=== PATIENT | male | born 1950 | race Caucasian/White ===

== ENCOUNTER 2018-04-15 08:12 | Outpatient (CLI) | payer BC | END 2018-04-15 08:13 | disposition home or self-care (01) | LOC: BICRAD 08:12 | PROVIDERS: ATTEND Urology | DX: N20.2 Calculus of kidney with calculus of ureter (principal) | CPT/HCPCS: 74018 ==

== ENCOUNTER 2018-05-15 08:16 | Outpatient (CLI) | payer BC | END 2018-05-15 08:17 | disposition home or self-care (01) | LOC: BICRAD 08:16 | PROVIDERS: ATTEND Urology | DX: N20.0 Calculus of kidney (principal) | CPT/HCPCS: 74018 ==

== ENCOUNTER 2018-06-04 08:14 | Outpatient (CLI) | payer BC ==
[2018-06-04 10:35] LABS: Bilirubin Negative (Negative); Blood, Urine Small (Negative); Clarity CLEAR (Clear); Glucose, Urine (Dipstick) Negative (Negative); Leukocyte Negative (Negative); Nitrite Negative (Negative); Protein, Urine (Dipstick) Negative (Neg-Trace); Specific Gravity, Urine 1.017 (1.002-1.036); Urobilinogen 0.2 mg/dL (0.2-1.0)
[2018-06-04 10:36] LABS: Hemoglobin 14.5 g/dL (14.0-18.0); Mean Corpuscular HGB CONC 34.8 g/dL (32.0-36.0); Mean Corpuscular Hemoglobin 33.8 pg (27.0-31.0); Mean Corpuscular Volume 97.1 fL (78.0-98.0); Mean Platelet Volume 8.1 fL (7.4-10.4); Platelet Count 262 thou/uL (130-400); RBC Distribution Width 11.7 % (11.5-14.5); Red Blood Cell (RBC) Count 4.29 mill/uL (4.70-6.10); White Blood Cell (WBC) Count 5.4 thou/uL (4.8-10.8)
[2018-06-04 10:37] LABS: Bacteria/HPF None Seen HPF (None Seen); Hyaline Casts/LPF 0-3 HYALINE CAST LPF (0-3 Hyaline); Pathc Cast-AUWi Flag 0.29 (0-2.49); Squamous Epithelial None Seen HPF (0-3); WBC/HPF None Seen HPF (0-3)
[2018-06-04 10:44] LABS: PTT 25.4 SEC (22.9-36.1); Prothrombin Time 12.9 SEC (12.0-14.7)
[2018-06-04 10:51] LABS: Anion Gap 13 mmol/L (10-20); BUN (Urea Nitrogen) 16 mg/dL (8.4-25.7); Calc. Creatinine Clearance 0 mL/min (70-130); Calcium 9.7 mg/dL (7.8-10.44); Carbon Dioxide 25 mmol/L (23-31); Chloride 107 mmol/L (98-107); Estimated GFR-MDRD 66; Glucose 84 mg/dL (80-115); Potassium 4.6 mmol/L (3.5-5.1); Sodium 140 mmol/L (136-145)
== END 2018-06-04 08:15 | disposition home or self-care (01) ==
LOC: LABBT 08:14
PROVIDERS: ATTEND Urology
DX: Z01.812 Encounter for preprocedural laboratory examination (principal); N20.2 Calculus of kidney with calculus of ureter
CPT/HCPCS: 80048; 81001; 85027; 85610; 85730; 87086

== ENCOUNTER 2018-06-13 06:53 | Day surgery (SDC) | payer BC ==
[2018-06-04 08:52] VITALS: BMI 27.3
[2018-06-13] MEDS ORDERED: Levofloxacin 500 mg/D5W 100 ml Premix Bag ONE (07:45)
[2018-06-13] MEDS ORDERED: Iothalamate Meglumine 60% 50 ML VIAL FS ONE (09:25)
[2018-06-13] MEDS ORDERED: Fentanyl 100 MCG/2 ML VIAL ONE (09:32)
[2018-06-13] MEDS ORDERED: Succinylcholine Chloride 20 MG/ML 10 ml SYRINGE FS ONE (11:05)
[2018-06-13] MEDS ORDERED: Ketorolac Tromethamine 30 MG/ML VIAL ONE (11:05)
[2018-06-13] MEDS ORDERED: PROPOFOL 200 MG/20 ML VIAL ONE (11:05)
[2018-06-13] MEDS ORDERED: Ondansetron HCl/PF 4 MG/2 ML Vial ONE (11:05)
[2018-06-13] MEDS ORDERED: PHENYLEPHRINE-NS 100 MCG/ML 10 ML SYRINGE ONE (11:05)
[2018-06-13] MEDS ORDERED: Glycopyrrolate 0.2 MG/ML 5 ML SYRINGE ONE (11:05)
[2018-06-13] MEDS ORDERED: Dexamethasone 20 MG/5 ML VIAL ONE (11:05)
[2018-06-13] MEDS ORDERED: Lidocaine 1% PF 5 ML VIAL ONE (11:05)
--- NOTE | 2018-06-13 11:31 | OP ---
DATE OF PROCEDURE: 06/13/2018 SERVICE: Urology. SURGEON: Brody Lanier M.D. PREOPERATIVE DIAGNOSIS: Right renal stone. POSTOPERATIVE DIAGNOSIS: Right ureteral stone. PROCEDURE PERFORMED: Right ureteroscopy, laser lithotripsy, basket retraction of stone and placement of 6 x 26 double-J stent. INDICATIONS FOR PROCEDURE: Mr. Stanton is a 67-year-old white male with history of nephrolithiasis . He had a known 11 mm right renal stone on CT scan. On KUB, there was a concern that the stone had migrated into the ureter, although the patient remained asymptomatic with no hematuria, no flank juan n. I would recommend we go ahead and bring him to the OR for ureteroscopy given the size of the ston e, whether it is in the ureter or in the kidney, it should be treated. Risks and benefits of the kylah muller had been discussed and he has agreed to proceed forward. DESCRIPTION OF PROCEDURE: After identification of arm band and verification of consent, the patient was brought back to the operating room and underwent general anesthesia with an LMA. He was then kori matilda in the dorsal lithotomy position and prepped and draped in the usual sterile fashion. After appr opriate timeout, a lubricated 22-English rigid cystoscope was induced per urethra into the bladder. A ttention was turned to the right ureteral orifice, which was cannulated with a 0.035 sensor wire. Fl uoroscopy demonstrated radiodensity in the distal ureter, likely indicating the stone. The wire was affixed to the drapes as a safety wire and the cystoscope removed. A semi-rigid ureteroscope was the n brought in alongside the sensor wire into the distal ureter where the stone was encountered. Using a 365 micron laser fiber, the stone was fragmented into small pieces and then the pieces were remove d using a 1.9 English 0 tip nitinol basket. Upon completion, the ureter was nearly completely clean o ther than some very fine dust sediment and extremely tiny stone pieces. All large stone pieces had a lready been removed. Ureteroscopy was completed all the way up to the UPJ where no additional stones were seen. An Amplatz Super Stiff wire were then placed through the ureteroscope into the renal pel vis and a semi-rigid ureteroscope removed. An 11/13 x 46 cm ureteral access sheath was then placed o kendall the Super Stiff wire up to the level of the UPJ. The inner cannula and Super Stiff wire were the n removed leaving the outer sheath and the sensor wire in place as a safety wire. A flexible digital ureteroscope was then passed through the ureteral access sheath into the renal pelvis and a full sheila loscopy was performed. All calices were checked, especially the lower pole where the CT had demonstr ated the prior stone and no additional stones were encountered within the renal pelvis. Satisfied, t he ureteroscope and sheath were then removed and the cystoscope was then backloaded over the sensor w jose alberto back into the bladder. A 6 x 26 double-J stent was advanced over the sensor wire up to the level of the renal pelvis. The wire was then removed leaving a partial curl in the renal pelvis and a goo d curl in the bladder. The bladder was then emptied and any stone fragments removed. The cystoscope was then removed. The patient was awakened and taken to PACU for recovery in stable condition. COMPLICATIONS: None. ESTIMATED BLOOD LOSS: Minimal. RETAINED TUBES AND DRAINS: A 6 x 26 double-J stent on the right. SPECIMENS: Stone for stone analysis. DISPOSITION: The patient will be discharged home and follow up with me in approximately 1 week for c ystoscopy stent removal.
--- NOTE | 2018-06-14 15:13 | EKG ---
Test Reason : PREOP Blood Pressure : / mmHG Vent. Rate : 066 BPM Atrial Rate : 066 BPM P-R Int : 138 ms QRS Dur : 086 ms QT Int : 398 ms P-R-T Axes : 054 013 023 degrees QTc Int : 417 ms Normal sinus rhythm Normal ECG When compared with ECG of 13-NOV-2013 06:43, No significant change was found Confirmed by JAMEY CORRALES MD ([id number]) on 06/14/2018 3:13:27 PM Referred By: LETICIA Confirmed By:JAMEY CORRALES MD
== END 2018-06-13 12:25 | disposition home or self-care (01) ==
LOC: SDC 06:53
PROVIDERS: ATTEND Urology
DX: N20.1 Calculus of ureter (principal); E78.5 Hyperlipidemia, unspecified; N40.1 Benign prostatic hyperplasia with lower urinary tract symptoms; F17.210 Nicotine dependence, cigarettes, uncomplicated; Z79.82 Long term (current) use of aspirin; Z87.442 Personal history of urinary calculi; Z79.899 Other long term (current) drug therapy
CPT/HCPCS: 82365; 88300; 93005; 93010; C1769; J1100; J1885; J1956; J2001; J2405; J2704; J3010; Q9961

== ENCOUNTER 2018-07-31 12:57 | Outpatient (CLI) | payer BC ==
--- NOTE | 2018-07-31 14:08 | ULT ---
BILATERAL RENAL ULTRASOUND COMPLETE: HISTORY: Nephrolithiasis. FINDINGS: The liver echogenicity is somewhat coarse, evidence for nonspecific liver disease including fatty inf iltration. The right kidney measures 11.5 x 5.3 x 5.0 cm. The left kidney measures 11.6 x 6.6 x 5.2 cm. There are some small bilateral echogenic foci in both kidneys without renal hydronephrosis. The bladder ap pears unremarkable. No perinephric process. IMPRESSION: Multiple small echogenic foci in both kidneys, nonspecific. No renal hydronephrosis. Evidence for n onspecific hepatic parenchymal disease. POS: [facility]
== END 2018-07-31 12:58 | disposition home or self-care (01) ==
LOC: BICULT 12:57
PROVIDERS: ATTEND Urology
DX: Z12.5 Encounter for screening for malignant neoplasm of prostate (principal); N20.0 Calculus of kidney; K76.89 Other specified diseases of liver; R93.421 Abnormal radiologic findings on diagnostic imaging of right kidney; R93.422 Abnormal radiologic findings on diagnostic imaging of left kidney
CPT/HCPCS: 76770

== ENCOUNTER 2019-05-27 11:27 | Outpatient (CLI) | payer BC ==
--- NOTE | 2019-05-27 12:12 | RAD ---
EXAM: 3 views of the right great toe HISTORY: Toe pain COMPARISON: None FINDINGS: There is no evidence of acute fracture or dislocation. Mild diffuse soft tissue swelling is seen. Mild metatarsophalangeal degenerative changes are present. No radiopaque foreign body is seen. IMPRESSION: No evidence of acute osseous abnormality.
== END 2019-05-27 11:28 | disposition home or self-care (01) ==
LOC: BICRAD 11:27
PROVIDERS: ATTEND Family Medicine
DX: M79.674 Pain in right toe(s) (principal)

== ENCOUNTER 2019-09-26 10:39 | Emergency (ER) | payer BC ==
--- NOTE | 2019-09-26 12:17 | RAD ---
Exam:3 views left foot HISTORY: Pain. Gout. COMPARISON: None FINDINGS: Minimal erosive changes along the head of the first metatarsal. Associated soft tissue swel ling. Joint spaces preserved. Lisfranc alignment is maintained. No fracture. IMPRESSION: Erosive changes along the first metatarsal phalangeal joint space with soft tissue swelli ng. Correlate for gout arthropathy
[2019-09-26] MEDS ORDERED: Ketorolac Tromethamine 30 MG/ML VIAL ONE (12:51)
== END 2019-09-26 13:10 | disposition home or self-care (01) ==
LOC: ERS 10:39
DX: M10.9 Gout, unspecified (principal); E78.5 Hyperlipidemia, unspecified; E78.00 Pure hypercholesterolemia, unspecified; F17.210 Nicotine dependence, cigarettes, uncomplicated; Z79.82 Long term (current) use of aspirin; Z79.899 Other long term (current) drug therapy
CPT/HCPCS: 96372; J1885

== ENCOUNTER 2020-09-07 14:56 | Outpatient (CLI) | payer BC ==
--- NOTE | 2020-09-07 15:15 | RAD ---
Right knee:2 views INDICATIONS:Knee pain COMPARISON:None FINDINGS: Slight medial joint narrowing. No significant degenerative change. Minimal spurring from the posterio r patella. No joint effusion. IMPRESSION: Slight medial joint narrowing and mild degenerative spurring from the posterior patella.
== END 2020-09-07 14:57 | disposition home or self-care (01) ==
LOC: BICRAD 14:56
PROVIDERS: ATTEND Family Medicine
DX: M25.561 Pain in right knee (principal); M17.11 Unilateral primary osteoarthritis, right knee

== ENCOUNTER 2020-09-23 09:46 | Outpatient (CLI) | payer BC ==
--- NOTE | 2020-09-23 11:28 | MRI ---
MR OF THE RIGHT KNEE WITHOUT CONTRAST INDICATION: Right knee pain TECHNIQUE: Axial and coronal PD fat sat, sagittal T2 fat sat, sagittal PD turbo spin echo and T1 gabbie nal images were obtained of the right knee. COMPARISON: Right knee radiograph dated September 07, 2020 FINDINGS: Joint effusion: None. Semimembranosus-medial gastrocnemius popliteal cyst: Tiny Frank's cyst Ligaments: The ACL, PCL, MCL and LCLC are intact. Extensor mechanism: Intact. Menisci: There is a complete radial tear involving the body of the medial meniscus. There is a horizo ntal component extending into the posterior junction and posterior horn of the medial meniscus. There is partial extrusion of the medial meniscus. Lateral meniscus is intact. Articular cartilage: Intact. Osseous structures: Normal marrow signal. Popliteus and IT band: Normal. IMPRESSION: 1. Complete radial tear of the body of the medial meniscus with partial medial extrusion. There is a horizontal component of the tear extending into the posterior junction and posterior horn of the medial meniscus. 2. The lateral meniscus is intact.
== END 2020-09-23 09:47 | disposition home or self-care (01) ==
LOC: BICMRI 09:46
PROVIDERS: ATTEND Orthopaedic Surgery
DX: M25.561 Pain in right knee (principal); S83.241A Other tear of medial meniscus, current injury, right knee, initial encounter

== ENCOUNTER 2021-07-20 10:06 | Outpatient (CLI) | payer BC | END 2021-07-20 10:07 | disposition home or self-care (01) | LOC: BICRAD 10:06 | PROVIDERS: ATTEND Family Medicine | DX: M54.5 Low back pain (principal); M16.0 Bilateral primary osteoarthritis of hip; M47.816 Spondylosis without myelopathy or radiculopathy, lumbar region; M85.852 Other specified disorders of bone density and structure, left thigh | CPT/HCPCS: 72100; 72190 ==

== ENCOUNTER 2022-01-20 12:34 | Emergency (ER) | payer BC ==
[2022-01-20] MEDS ORDERED: traMADol HCl 50 MG TAB ONE (13:36)
[2022-01-20] MEDS ORDERED: Cyclobenzaprine 10 MG TAB ONE (13:37)
[2022-01-20] MEDS ORDERED: predniSONE 20 MG TAB ONE ×2 (13:37→13:48)
[2022-01-20] MEDS ORDERED: Ketorolac Tromethamine 30 MG/ML VIAL ONE (13:37)
== END 2022-01-20 15:07 | disposition home or self-care (01) ==
LOC: ERS 12:34
DX: M51.34 Other intervertebral disc degeneration, thoracic region (principal); I10 Essential (primary) hypertension; E78.5 Hyperlipidemia, unspecified; E78.00 Pure hypercholesterolemia, unspecified; M10.9 Gout, unspecified; F17.210 Nicotine dependence, cigarettes, uncomplicated
CPT/HCPCS: 96372; 99283; J1885; J7512

== ENCOUNTER 2022-03-02 13:02 | Outpatient (CLI) | payer BC | END 2022-03-02 13:03 | disposition home or self-care (01) | LOC: TBSIIMAG 13:02 | PROVIDERS: ATTEND Neurological Surgery | DX: M25.561 Pain in right knee (principal); M54.50 Low back pain, unspecified; M47.816 Spondylosis without myelopathy or radiculopathy, lumbar region; M51.26 Other intervertebral disc displacement, lumbar region; M43.06 Spondylolysis, lumbar region; S83.206A Unspecified tear of unspecified meniscus, current injury, right knee, initial encounter | CPT/HCPCS: 72148 ==

== ENCOUNTER 2022-05-17 07:47 | Outpatient (CLI) | payer MEDICARE, BC | END 2022-05-17 07:48 | disposition home or self-care (01) | LOC: BICCT 07:47 | PROVIDERS: ATTEND Family Medicine | DX: Z12.2 Encounter for screening for malignant neoplasm of respiratory organs (principal); F17.210 Nicotine dependence, cigarettes, uncomplicated; I25.10 Atherosclerotic heart disease of native coronary artery without angina pectoris | CPT/HCPCS: 71271 ==

== ENCOUNTER 2024-05-14 07:31 | Outpatient (CLI) | payer MEDICARE, BC | END 2024-05-14 07:32 | disposition home or self-care (01) | LOC: BICULT 07:31 | PROVIDERS: ATTEND Family Medicine | DX: Z13.6 Encounter for screening for cardiovascular disorders (principal); Z12.2 Encounter for screening for malignant neoplasm of respiratory organs; F17.210 Nicotine dependence, cigarettes, uncomplicated; R91.1 Solitary pulmonary nodule | CPT/HCPCS: 71271; 76775 ==